=== PATIENT | female | born 1995 | race Caucasian/White ===

== ENCOUNTER 2016-11-14 20:41 | Inpatient (IN) | payer OTHER ==
[2016-11-14 21:19] LABS: CHLORIDE,CL 96 mEq/L (98-106)
[2016-11-14 21:25] LABS: SODIUM,NA 123 mEq/L (136-145)
[2016-11-14] MEDS ORDERED: Sodium Chloride 0.9% 1,000 ML IV ONE (21:29)
[2016-11-14] MEDS ORDERED: Potassium Chloride 40 MEQ in Premix Bag 1 BAG IV ONE (21:30)
[2016-11-14] MEDS ORDERED: Ondansetron 4 MG/2 ML SDV IVPUSH STA (21:46)
[2016-11-14] MEDS ORDERED: Acetaminophen 325 MG Tab PO ONE (21:46)
--- NOTE | 2016-11-14 21:49 | EDM.PDOC ---
ED HPI GENERAL MEDICAL PROBLEM - General Chief Complaint: General Stated Complaint: Vomiting, dizziness, abd cramp, diarrhea Time Seen by Provider: 11/14/16 21:10 Source of Information: Reports: Patient History Limitations: Reports: No Limitations - History of Present Illness INITIAL COMMENTS - FREE TEXT/NARRATIVE: Verito is a 21 yo female who presents to the ER with complaints of nausea, vomiting, fever and diarrhea. States it initially started Sunday night with a fever. Unknown temperature, states she just felt like she had one. States Sunday morning she started having frequent episodes of vomiting with diarrhea. Admits it has continued thru out today. States she is unable to keep anything down. Has been trying to drink water and Gatorade. Denies any recent travel or any questionable foods. Onset Date: 11/12/16 Duration: Getting Worse Location: Reports: Abdomen Abdominal Pain Score (Numeric/FACES): 5 - Related Data Allergies Allergy/AdvReac Type Severity Reaction Status Date / Time No Known Allergies Allergy Verified 11/14/16 20:42 Home Meds: Home Meds . [No Known Home Meds] 11/14/16 [History] Past Medical History - Past Health History Medical/Surgical History: Denies Medical/Surgical History - Past Surgical History Other Surgical History Comment: No prior surgical history Social & Family History - Tobacco Use Smoking Status *Q: Never Smoker - Alcohol Use Alcohol Use in Last Twelve Months: No - Recreational Drug Use Recreational Drug Use: No ED ROS GENERAL - Review of Systems Review Of Systems: See Below Constitutional: Reports: Fever, Chills, Decreased Appetite HEENT: Reports: No Symptoms Respiratory: Reports: No Symptoms. Denies: Shortness of Breath Cardiovascular: Reports: No Symptoms GI/Abdominal: Reports: Abdominal Pain, Diarrhea, Decreased Appetite, Nausea, Vomiting. Denies: Bloody Stool, Constipation, Hematochezia, Melena : Reports: No Symptoms Neurological: Reports: No Symptoms ED EXAM, GENERAL - Physical Exam Exam: See Below Exam Limited By: No Limitations General Appearance: Alert, Mild Distress Eye Exam: Bilateral Eye: Normal Inspection Ears: Normal External Exam, Normal Canal, Hearing Grossly Normal, Normal TMs Nose: Normal Inspection, No Blood Throat/Mouth: Normal Inspection, Normal Lips, Normal Teeth, Normal Oropharynx, Normal Voice, No Airway Compromise Head: Atraumatic, Normocephalic Neck: Normal Inspection, Supple Respiratory/Chest: No Respiratory Distress, Lungs Clear, Normal Breath Sounds, No Accessory Muscle Use Cardiovascular: Normal Peripheral Pulses, Regular Rate, Rhythm, No Murmur GI/Abdominal: No Distention, Tender (right and left lower quadrants), Abnormal Bowel Sounds (hypoactive). No: Guarding, Hepatomegaly, Splenomegaly Extremities: Normal Inspection, Normal Capillary Refill Neurological: Alert, Oriented, Normal Cognition Psychiatric: Normal Affect, Normal Mood Skin Exam: Dry, Intact, Normal Color, No Rash, Increased Warmth Course - Vital Signs Last Recorded V/S: Last Vital Signs Temp 99 F 11/14/16 20:42 Pulse 96 11/14/16 20:42 Resp 18 11/14/16 20:42 BP 135/69 11/14/16 20:42 Pulse Ox 97 11/14/16 20:42 - Orders/Labs/Meds Orders: Active Orders 24 hr Category Date Time Status Patient Status Manage Transfer [TRANSFER] Routine ADT 11/14/16 23:25 Ordered Abdomen Pelvis w Cont [CT] Stat Exams 11/14/16 21:28 Taken Potassium Chloride [KCL 40 MEQ in Water 100 ML] 40 meq Med 11/14/16 21:30 Active Premix Bag 1 bag IV ONETIME Resuscitation Status Routine Resus Stat 11/14/16 23:26 Ordered Medication Orders Potassium Chloride 40 meq/ (Premix) 100 mls @ 25 mls/hr IV ONETIME ONE Stop: 11/15/16 01:29 Last Admin: 11/14/16 22:06 Dose: 25 mls/hr Labs: Laboratory Tests 11/14/16 11/14/16 11/14/16 Range/Units 21:00 21:00 21:00 WBC 10.8 H (5.0-10.0) 10^3/uL RBC 4.69 (4.00-5.50) 10^6/uL Hgb 13.8 (12.0-16.0) g/dL Hct 38.7 (37.0-47.0) % MCV 82.5 (82.0-94.0) fL MCH 29.4 (27.0-32.0) pg MCHC 35.7 (33.0-38.0) g/dL RDW Coeff of Jake 12.1 (11.0-15.0) % Plt Count 205 (150-400) 10^3/uL Neut % (Auto) 67.4 (35-85) % Lymph % (Auto) 23.7 (10-55) % [place] % (Auto) 8.3 (0-16) % Eos % (Auto) 0.3 (0-5) % Baso % (Auto) 0.3 (0-3) % Neut # (Auto) 7.27 H (1.80-7.00) 10^3/uL Lymph # (Auto) 2.55 (1.00-4.80) 10^3/uL [place] # (Auto) 0.90 H (0.00-0.80) 10^3/uL Eos # (Auto) 0.03 (0.00-0.45) 10^3/uL Baso # (Auto) 0.03 10^3/uL Sodium 123 L* (136-145) mEq/L Potassium 2.6 L* (3.5-5.0) mEq/L Chloride 96 L (98-106) mEq/L Carbon Dioxide 25 (21-32) mmol/L BUN 8 (7-18) mg/dL Creatinine 0.8 (0.6-1.0) mg/dL Est Cr Clr Drug Dosing 87.98 mL/min Estimated GFR (MDRD) > 60 (>=60) mL/min Glucose 82 (75-99) mg/dL Calcium 8.8 (8.4-10.1) mg/dL Total Bilirubin 1.5 H (0.0-1.0) mg/dL AST 23 (15-37) U/L ALT 34 (12-78) U/L Alkaline Phosphatase 61 (46-116) U/L C-Reactive Protein 21.8 H (0.2-0.8) mg/dL Total Protein 8.4 H (6.4-8.2) g/dL Albumin 3.7 (3.4-5.0) g/dL Urine Color (YELLOW) Urine Appearance (CLEAR) Urine pH (4.5-8.0) Ur Specific [place] (1.003-1.020) Urine Protein (NEGATIVE) mg/dL Urine Glucose (UA) (NEGATIVE) mg/dL Urine Ketones (NEGATIVE) mg/dL Urine Occult Blood (NEGATIVE) Urine Nitrite (NEGATIVE) Urine Bilirubin (NEGATIVE) Urine Urobilinogen (0.2-1.0) EU/dL Ur Leukocyte Esterase (NEGATIVE) Urine RBC (0-5) /HPF Urine WBC (0-5) /HPF Ur Epithelial Cells (NOT SEEN) /HPF Urine Bacteria (NOT SEEN) /HPF Granular Casts (NOT SEEN) /LPF Urine HCG, Qual Negative 11/14/16 Range/Units 21:00 WBC (5.0-10.0) 10^3/uL RBC (4.00-5.50) 10^6/uL Hgb (12.0-16.0) g/dL Hct (37.0-47.0) % MCV (82.0-94.0) fL MCH (27.0-32.0) pg MCHC (33.0-38.0) g/dL RDW Coeff of Jake (11.0-15.0) % Plt Count (150-400) 10^3/uL Neut % (Auto) (35-85) % Lymph % (Auto) (10-55) % [place] % (Auto) (0-16) % Eos % (Auto) (0-5) % Baso % (Auto) (0-3) % Neut # (Auto) (1.80-7.00) 10^3/uL Lymph # (Auto) (1.00-4.80) 10^3/uL [place] # (Auto) (0.00-0.80) 10^3/uL Eos # (Auto) (0.00-0.45) 10^3/uL Baso # (Auto) 10^3/uL Sodium (136-145) mEq/L Potassium (3.5-5.0) mEq/L Chloride (98-106) mEq/L Carbon Dioxide (21-32) mmol/L BUN (7-18) mg/dL Creatinine (0.6-1.0) mg/dL Est Cr Clr Drug Dosing mL/min Estimated GFR (MDRD) (>=60) mL/min Glucose (75-99) mg/dL Calcium (8.4-10.1) mg/dL Total Bilirubin (0.0-1.0) mg/dL AST (15-37) U/L ALT (12-78) U/L Alkaline Phosphatase (46-116) U/L C-Reactive Protein (0.2-0.8) mg/dL Total Protein (6.4-8.2) g/dL Albumin (3.4-5.0) g/dL Urine Color [place] (YELLOW) Urine Appearance Slightly cloudy (CLEAR) Urine pH 6.0 (4.5-8.0) Ur Specific [place] 1.025 H (1.003-1.020) Urine Protein 100 H (NEGATIVE) mg/dL Urine Glucose (UA) Negative (NEGATIVE) mg/dL Urine Ketones >=160 H (NEGATIVE) mg/dL Urine Occult Blood Moderate H (NEGATIVE) Urine Nitrite Negative (NEGATIVE) Urine Bilirubin Moderate H (NEGATIVE) Urine Urobilinogen 0.2 (0.2-1.0) EU/dL Ur Leukocyte Esterase Negative (NEGATIVE) Urine RBC 10-20 H (0-5) /HPF Urine WBC 10-20 H (0-5) /HPF Ur Epithelial Cells Many H (NOT SEEN) /HPF Urine Bacteria Moderate H (NOT SEEN) /HPF Granular Casts Few H (NOT SEEN) /LPF Urine HCG, Qual Meds: Medications Generic Name Dose Route Start Last Admin Trade Name Freq PRN Reason Stop Dose Admin Potassium Chloride 40 meq/ 100 mls @ 25 mls/hr 11/14/16 21:30 11/14/16 22:06 Premix IV 11/15/16 01:29 25 mls/hr ONETIME ONE Administration Discontinued Medications Generic Name Dose Route Start Last Admin Trade Name Freq PRN Reason Stop Dose Admin Acetaminophen 650 mg 11/14/16 21:46 11/14/16 21:57 Tylenol PO 11/14/16 21:47 650 mg NOW ONE Administration Sodium Chloride 1,000 mls @ 999 mls/hr 11/14/16 21:29 11/14/16 22:02 Normal Saline IV 11/14/16 22:29 999 mls/hr .BOLUS ONE Administration Ondansetron HCl 8 mg 11/14/16 21:46 11/14/16 21:57 Zofran IVPUSH 11/14/16 21:47 8 mg NOW STA Administration Departure - Departure Time of Disposition: 23:00 Disposition: Admitted As Inpatient 66 Condition: Good Clinical Impression: Gastroenteritis, Hyponatremia, Hypokalemia - Discharge Information Forms: ED Department Discharge - Problem List & Annotations (1) Gastroenteritis SNOMED Code(s): 07116581 Code(s): K52.9 - NONINFECTIVE GASTROENTERITIS AND COLITIS, UNSPECIFIED Status: Acute Current Visit: Yes (2) Hypokalemia SNOMED Code(s): 36769111 Code(s): E87.6 - HYPOKALEMIA Status: Acute Current Visit: Yes (3) Hyponatremia SNOMED Code(s): 60716250 Code(s): E87.1 - HYPO-OSMOLALITY AND HYPONATREMIA Status: Acute Current Visit: Yes - Problem List Review Problem List Initiated/Reviewed/Updated: Yes - My Orders Last 24 Hours: My Active Orders 11/14/16 21:28 Abdomen Pelvis w Cont [CT] Stat 11/14/16 21:30 Potassium Chloride [KCL 40 MEQ in Water 100 ML] 40 meq Premix Bag 1 bag IV ONETIME 11/14/16 23:25 Patient Status Manage Transfer [TRANSFER] Routine 11/14/16 23:26 Resuscitation Status Routine - Assessment/Plan Admission H&P: Please use this note as an admission H&P Last 24 Hours: My Active Orders 11/14/16 21:28 Abdomen Pelvis w Cont [CT] Stat 11/14/16 21:30 Potassium Chloride [KCL 40 MEQ in Water 100 ML] 40 meq Premix Bag 1 bag IV ONETIME 11/14/16 23:25 Patient Status Manage Transfer [TRANSFER] Routine 11/14/16 23:26 Resuscitation Status Routine Plan: Admit from ER to Dr. Eric's services under acute care. Dr. Eric and Sharon Mishra alerted on admission. CT scan of the abdomen/pelvis ruled out appendicitis. Reactive lymph nodes in the right mesentary noted, likely a gastroenteritis per radiologist as Pranay. Will treat with IV fluids, potassium replacement, Zofran for nausea. Will closely monitor electrolytes to correct sodium and potassium levels. Verito was informed on current condition and admission status. She was transferred to floor in satisfactory condition.
[2016-11-14] MEDS ORDERED: Ondansetron 4 MG/2 ML SDV IV PRN (23:50)
[2016-11-15] MEDS: NS + KCl 20mEq/L 1,000 ML IV SCH ×3 (00:10→14:30)
[2016-11-15] MEDS: Acetaminophen 325 MG Tab PO PRN (04:25)
[2016-11-15 07:44] LABS: CHLORIDE,CL 108 mEq/L (98-106); SODIUM,NA 143 mEq/L (136-145)
--- NOTE | 2016-11-15 16:40 | PCM.PN ---
- General Info Date of Service: 11/15/16 Admission Dx/Problem (Free Text): Gastroenteritis/colitis Functional Status: Reports: Pain Controlled. Denies: Tolerating Diet, Ambulating - Review of Systems General: Denies: Fever, Weakness, Fatigue HEENT: Reports: No Symptoms Pulmonary: Denies: Shortness of Breath, Cough, Wheezing Cardiovascular: Denies: Chest Pain, Edema, Lightheadedness Gastrointestinal: Reports: Decreased Appetite, Diarrhea, Nausea. Denies: Abdominal Pain, Vomiting Genitourinary: Reports: No Symptoms Musculoskeletal: Reports: No Symptoms Skin: Reports: No Symptoms Neurological: Reports: No Symptoms - Patient Data Vitals - Most Recent: Last Vital Signs Temp 97.9 F 11/15/16 16:00 Pulse 69 11/15/16 16:00 Resp 16 11/15/16 16:00 BP 101/45 L 11/15/16 16:00 Pulse Ox 100 11/15/16 16:00 Weight - Most Recent: 236 lb 1.6 oz I&O - Last 24 Hours: Intake & Output 11/15/16 11/15/16 11/15/16 06:59 14:59 22:59 Intake Total 1000 1000 Balance 1000 1000 Lab Results Last 24 Hours: Laboratory Results - last 24 hr 11/15/16 11/15/16 Range/Units 06:50 06:50 WBC 7.6 (5.0-10.0) 10^3/uL RBC 3.95 L (4.00-5.50) 10^6/uL Hgb 11.6 L (12.0-16.0) g/dL Hct 33.2 L (37.0-47.0) % MCV 84.1 (82.0-94.0) fL MCH 29.4 (27.0-32.0) pg MCHC 34.9 (33.0-38.0) g/dL RDW Coeff of Jake 12.1 (11.0-15.0) % Plt Count 181 (150-400) 10^3/uL Neut % (Auto) 48.5 (35-85) % Lymph % (Auto) 38.3 (10-55) % [place] % (Auto) 11.3 (0-16) % Eos % (Auto) 1.4 (0-5) % Baso % (Auto) 0.5 (0-3) % Neut # (Auto) 3.67 (1.80-7.00) 10^3/uL Lymph # (Auto) 2.91 (1.00-4.80) 10^3/uL [place] # (Auto) 0.86 H (0.00-0.80) 10^3/uL Eos # (Auto) 0.11 (0.00-0.45) 10^3/uL Baso # (Auto) 0.04 10^3/uL Sodium 143 (136-145) mEq/L Potassium 3.9 D (3.5-5.0) mEq/L Chloride 108 H (98-106) mEq/L Carbon Dioxide 26 (21-32) mmol/L BUN 7 (7-18) mg/dL Creatinine 0.7 (0.6-1.0) mg/dL Est Cr Clr Drug Dosing 100.55 mL/min Estimated GFR (MDRD) > 60 (>=60) mL/min Glucose 82 (75-99) mg/dL Calcium 8.1 L (8.4-10.1) mg/dL Magnesium 1.8 (1.8-2.4) mg/dL C-Reactive Protein 18.8 H (0.2-0.8) mg/dL Med Orders - Current: Current Medications Acetaminophen (Tylenol) 650 mg PO Q4H PRN PRN Reason: Pain (Mild 1-3)/fever Last Admin: 11/15/16 04:25 Dose: 650 mg Potassium Chloride/Sodium Chloride (Normal Saline With 20 Meq Kcl) 1,000 mls @ 150 mls/hr IV ASDIRECTED [facility] Last Admin: 11/15/16 14:30 Dose: 150 mls/hr Ondansetron HCl (Zofran) 4 mg IV Q4H PRN PRN Reason: Nausea/Vomiting Discontinued Medications Acetaminophen (Tylenol) 650 mg PO NOW ONE Stop: 11/14/16 21:47 Last Admin: 11/14/16 21:57 Dose: 650 mg Potassium Chloride 40 meq/ (Premix) 100 mls @ 25 mls/hr IV ONETIME ONE Stop: 11/15/16 01:29 Last Admin: 11/14/16 22:06 Dose: 25 mls/hr Sodium Chloride (Normal Saline) 1,000 mls @ 999 mls/hr IV .BOLUS ONE Stop: 11/14/16 22:29 Last Admin: 11/14/16 22:02 Dose: 999 mls/hr Ondansetron HCl (Zofran) 8 mg IVPUSH NOW STA Stop: 11/14/16 21:47 Last Admin: 11/14/16 21:57 Dose: 8 mg - Exam General: Alert, Oriented HEENT: Mucous Membr. Moist/[place] Neck: Supple Lungs: Clear to Auscultation, Normal Respiratory Effort Cardiovascular: Regular Rate, Regular Rhythm GI/Abdominal Exam: Normal Bowel Sounds, Soft, Tender (midepigastric/upper quadrant region) Extremities: Normal Inspection, No Pedal Edema Skin: Warm, Dry Neurological: No New Focal Deficit Psy/Mental Status: Alert, Normal Affect, Normal Mood - Problem List & Annotations (1) Gastroenteritis SNOMED Code(s): 03963905 Code(s): K52.9 - NONINFECTIVE GASTROENTERITIS AND COLITIS, UNSPECIFIED Status: Acute Priority: High Current Visit: Yes (2) Hypokalemia SNOMED Code(s): 87445224 Code(s): E87.6 - HYPOKALEMIA Status: Acute Priority: High Current Visit : Yes (3) Hyponatremia SNOMED Code(s): 90207172 Code(s): E87.1 - HYPO-OSMOLALITY AND HYPONATREMIA Status: Acute Priority : High Current Visit: Yes - Problem List Review Problem List Initiated/Reviewed/Updated: Yes - My Orders Last 24 Hours: My Active Orders 11/16/16 05:11 BASIC METABOLIC PANEL,BMP [CHEM] AM C-REACTIVE PROTEIN [CHEM] AM CBC WITH AUTO DIFF [HEME] AM - Assessment Assessment:: Gastroenteritis - Plan Plan:: Patient states stomach more "settled today", however has yet to be able to tolerate any oral intake. Has been sipping on water today but had some jello and had diarrhea stools thereafter. Did try some soup this afternoon but did not tolerate well. States abdomen is "sore". No further vomiting but admits that the smell of food makes her more nauseated and she has no desire to eat. No fevers. Labs improved today, now within normal range. IV fluids yet infusing. Will reevaluate labs in am. Encouraged oral intake. Decrease IV fluid rate. Follow up and possibly discharge in am.
[2016-11-16] MEDS: Acetaminophen 325 MG Tab PO PRN (01:03)
[2016-11-16] MEDS: NS + KCl 20mEq/L 1,000 ML IV SCH (01:07)
[2016-11-16 08:50] VITALS: BP 98/59
--- NOTE | 2016-11-16 09:13 | PCM.DCSUM1 ---
Discharge Summary - Hospital Course Free Text/Narrative:: Patient presented to ED with complaints of nausea, vomiting, diarrhea and abdominal pain. Had complete work up in the ED including a CT scan and ultrasound that showed reactive lymph nodes most likely from gastroenteritis. Her labs showed a sodium level of 123 and potassium of 2.6. She was admitted for IV fluids and potassium replacement. - Discharge Data Discharge Date: 11/16/16 Discharge Disposition: Home, Self-Care 01 Condition: Good - Discharge Diagnosis/Problem(s) (1) Gastroenteritis SNOMED Code(s): 04413322 ICD Code: K52.9 - NONINFECTIVE GASTROENTERITIS AND COLITIS, UNSPECIFIED Status: Acute Priority: High Current Visit: Yes (2) Hypokalemia SNOMED Code(s): 05885866 ICD Code: E87.6 - HYPOKALEMIA Status: Resolved Priority: High Current Visit: Yes (3) Hyponatremia SNOMED Code(s): 89193030 ICD Code: E87.1 - HYPO-OSMOLALITY AND HYPONATREMIA Status: Resolved Priority: High Current Visit: Yes - Patient Summary/Data Complications: none Hospital Course: Patient feeling better now today. Did have difficulty tolerating any oral intake as it caused more diarrhea and abdominal "soreness". Did finally eat some soup last night and tolerated well, states stools are now starting to have some more consistently, not as watery. She has been afebrile now. Labs have improved. Sodium today was 142, potassium of 4. She does have occasional nausea but no further vomiting. Discharge home on Zofran and follow up as needed. - Patient Instructions Diet: Regular Diet as Tolerated Activity: As Tolerated - Discharge Plan Home Medications: Home Meds . [No Known Home Meds] 11/14/16 [History] Forms: ED Department Discharge Referrals: PCP,Unobtain [Ordering Only Provider] - - Discharge Summary/Plan Comment DC Time >30 min.: Yes Discharge Summary/Plan Comment: Discharge home on Zofran, follow up in clinic as needed. - General Info Date of Service: 11/16/16 Admission Dx/Problem (Free Text: Gastroenteritis/colitis Functional Status: Reports: Pain Controlled, Tolerating Diet, Ambulating - Review of Systems General: Reports: Fatigue. Denies: Fever, Weakness HEENT: Reports: No Symptoms Pulmonary: Denies: Shortness of Breath, Cough, Sputum Cardiovascular: Denies: Chest Pain, Edema, Lightheadedness Gastrointestinal: Reports: Abdominal Pain, Diarrhea, Nausea. Denies: Constipation, Vomiting Genitourinary: Reports: No Symptoms Musculoskeletal: Reports: No Symptoms Skin: Reports: No Symptoms Neurological: Reports: No Symptoms Psychiatric: Reports: No Symptoms - Patient Data Vitals - Most Recent: Last Vital Signs Temp 98.7 F 11/16/16 08:00 Pulse 68 11/16/16 08:00 Resp 16 11/16/16 08:00 BP 98/59 L 11/16/16 08:00 Pulse Ox 99 11/16/16 08:00 Weight - Most Recent: 236 lb 1.6 oz I&O - Last 24 hours: Intake & Output 11/15/16 11/16/16 11/16/16 22:59 06:59 14:59 Intake Total 353 620 Balance 353 620 Med Orders - Current: Current Medications Acetaminophen (Tylenol) 650 mg PO Q4H PRN PRN Reason: Pain (Mild 1-3)/fever Last Admin: 11/16/16 01:03 Dose: 650 mg Potassium Chloride/Sodium Chloride (Normal Saline With 20 Meq Kcl) 1,000 mls @ 75 mls/hr IV ASDIRECTED [facility] Last Admin: 11/16/16 01:07 Dose: 75 mls/hr Ondansetron HCl (Zofran) 4 mg IV Q4H PRN PRN Reason: Nausea/Vomiting Discontinued Medications Acetaminophen (Tylenol) 650 mg PO NOW ONE Stop: 11/14/16 21:47 Last Admin: 11/14/16 21:57 Dose: 650 mg Potassium Chloride 40 meq/ (Premix) 100 mls @ 25 mls/hr IV ONETIME ONE Stop: 11/15/16 01:29 Last Admin: 11/14/16 22:06 Dose: 25 mls/hr Sodium Chloride (Normal Saline) 1,000 mls @ 999 mls/hr IV .BOLUS ONE Stop: 11/14/16 22:29 Last Admin: 11/14/16 22:02 Dose: 999 mls/hr Ondansetron HCl (Zofran) 8 mg IVPUSH NOW STA Stop: 11/14/16 21:47 Last Admin: 11/14/16 21:57 Dose: 8 mg - Exam General: Reports: Alert, Oriented HEENT: Reports: Mucous Membr. Moist/[place] Neck: Reports: Supple Lungs: Reports: Clear to Auscultation, Normal Respiratory Effort Cardiovascular: Reports: Regular Rate, Regular Rhythm GI/Abdominal Exam: Normal Bowel Sounds, Soft, Tender (midepigastric area) Rectal (Female) Exam: Normal Exam Back Exam: Reports: Normal Inspection Skin: Reports: Warm, Dry Neurological: Reports: No New Focal Deficit Psy/Mental Status: Reports: Alert, Normal Affect, Normal Mood *Q Meaningful Use (DIS) - VTE *Q VTE Criteria *Q: - Stroke *Q Stroke Criteria *Q: - AMI *Q AMI Criteria *Q:
[2016-11-16 09:29] LABS: CHLORIDE,CL 109 mEq/L (98-106); SODIUM,NA 142 mEq/L (136-145)
== END 2016-11-16 09:20 | disposition home or self-care (01) | DRG 392 ==
LOC: CC.ED 20:41 → CC.MS 23:43 → UNDOADMIN 23:43 → CC.MS 23:50
PROVIDERS: ADMIT Physician Assistant Medical; ATTEND Family Medicine
DX: K52.9 Noninfective gastroenteritis and colitis, unspecified (principal); E87.1 Hypo-osmolality and hyponatremia; E87.6 Hypokalemia
CPT/HCPCS: 36415; 74177; 80048; 80053; 81001; 81025; 83735; 85025; 86140; 96361; 96365; 96366; 96374; 96375; 99284; A9270-GY; J2405; J3480; J7030; Q9967

== ENCOUNTER 2017-01-16 00:51 | Emergency (ER) | payer OTHER ==
[2017-01-16 00:58] VITALS: BP 146/71
--- NOTE | 2017-01-16 01:25 | EDM.PDOC ---
ED HPI GENERAL MEDICAL PROBLEM - General Chief Complaint: Abdominal Pain Stated Complaint: abd pain Time Seen by Provider: 01/16/17 01:14 Source of Information: Reports: Patient, Old Records History Limitations: Reports: No Limitations - History of Present Illness INITIAL COMMENTS - FREE TEXT/NARRATIVE: Patient presents to the ER with epigastric and RUQ abdominal pain going through to the right upper back. 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 She has an appointment with a surgeon in about two weeks. She started having diarrhea today as well as the pain going through to the back. She became anxious, short of breath and nauseated. Last emesis earlier today. Patients LMP was two weeks ago. Denies being . Had CT of abdomen pelvis , GB ultrasound and HIDA scan late october. Has been having intermittent symptoms of epigastric pain and nausea since then. The pain in the right upper back is new. 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 [No Known Home Meds] 11/14/16 [History] Past Medical History - Past Health History Medical/Surgical History: Denies Medical/Surgical History Gastrointestinal History: Reports: Other (See Below) (biliary dyskenesa diagnosed with HIDA scan last month) - Past Surgical History Other Surgical History Comment: No prior surgical history Social & Family History - Family History Family Medical History: Noncontributory - Tobacco Use Smoking Status *Q: Never Smoker Second Hand Smoke Exposure: No - Recreational Drug Use Recreational Drug Use: No ED ROS GENERAL - Review of Systems Review Of Systems: See Below Constitutional: Reports: Fever, Chills HEENT: Reports: No Symptoms Respiratory: Reports: Shortness of Breath, Pleuritic Chest Pain (right upper back pain worse with deep breathing or cough). Denies: Sputum, Hemoptysis Cardiovascular: Denies: Chest Pain, Dyspnea on Exertion, Edema, Lightheadedness , Palpitations Endocrine: Reports: No Symptoms GI/Abdominal: Reports: Abdominal Pain, Diarrhea, Nausea, Vomiting. Denies: Black Stool, Bloody Stool, Flatus : Reports: No Symptoms Musculoskeletal: Reports: Back Pain (right upper back pain radiating from epigastric and RUQ area) Skin: Reports: No Symptoms Neurological: Reports: No Symptoms Psychiatric: Reports: No Symptoms Hematologic/Lymphatic: Reports: No Symptoms Immunologic: Reports: No Symptoms ED EXAM, GI/ABD - Physical Exam Exam: See Below Exam Limited By: No Limitations General Appearance: Alert, WD/WN, No Apparent Distress Eyes: Bilateral: Normal Appearance, EOMI Ears: Normal External Exam, Normal Canal, Hearing Grossly Normal, Normal TMs Nose: Normal Inspection, Normal Mucosa, No Blood Throat/Mouth: Normal Inspection, Normal Lips, Normal Teeth, Normal Gums, Normal Oropharynx, Normal Voice, No Airway Compromise Head: Atraumatic, Normocephalic Neck: Normal Inspection, Supple, Non-Tender, Full Range of Motion Respiratory/Chest: No Respiratory Distress, Lungs Clear, Normal Breath Sounds, No Accessory Muscle Use, Chest Non-Tender, Other (taking deep breath causes increased pain in right upper back) Cardiovascular: Normal Peripheral Pulses, Regular Rate, Rhythm, No Edema, No Gallop, No JVD, No Murmur, No Rub GI/Abdominal Exam: Other (Hypoactive bowel sounds in all four quadrants. abdomen is obese, non-distended, tender particularly in RUQ and epigastric area , non tender Lower abdomen. no flank tenderness with percussion. no guarding, distension or rigidity) (Female) Exam: Deferred Rectal (Female) Exam: Deferred Back Exam: Other (tender right upper back with percussion). No: CVA Tenderness (L), CVA Tenderness (R) Extremities: Normal Inspection, Normal Range of Motion, Non-Tender, Normal Capillary Refill, No Pedal Edema Neurological: Alert, Oriented, CN II-XII Intact, Normal Cognition, Normal Gait, Normal Reflexes, No Motor/Sensory Deficits Psychiatric: Normal Affect, Normal Mood Skin Exam: Warm, Dry, Intact, Normal Color, No Rash Lymphatic: No Adenopathy Course - Vital Signs Last Recorded V/S: Last Vital Signs Temp 38.2 C H 01/16/17 00:52 Pulse 110 H 01/16/17 00:52 Resp 16 01/16/17 00:52 BP 146/71 H 01/16/17 00:52 Pulse Ox 96 01/16/17 00:52 - Orders/Labs/Meds Orders: Active Orders 24 hr Category Date Time Status Abdomen 2V AP Flat Upright [CR] Stat Exams 01/16/17 01:32 Taken Chest 2V [CR] Stat Exams 01/16/17 01:31 Taken Sodium Chloride 0.9% [Normal Saline] 1,000 ml Med 01/16/17 01:45 Active IV ASDIRECTED Sodium Chloride 0.9% [Saline Flush] Med 01/16/17 01:34 Active 10 ml FLUSH ASDIRECTED PRN Saline Lock Insert [OM.PC] Routine Oth 01/16/17 01:34 Ordered Medication Orders Sodium Chloride (Normal Saline) 1,000 mls @ 999 mls/hr IV ASDIRECTED BECKY Last Admin: 01/16/17 01:45 Dose: 999 mls/hr Sodium Chloride (Saline Flush) 10 ml FLUSH ASDIRECTED PRN PRN Reason: Keep Vein Open Labs: Laboratory Tests 01/16/17 01/16/17 Range/Units 01:45 01:45 WBC 5.8 (5.0-10.0) 10^3/uL RBC 4.46 (4.00-5.50) 10^6/uL Hgb 13.2 (12.0-16.0) g/dL Hct 37.5 (37.0-47.0) % MCV 84.1 (82.0-94.0) fL MCH 29.6 (27.0-32.0) pg MCHC 35.2 (33.0-38.0) g/dL RDW Coeff of Jake 12.5 (11.0-15.0) % Plt Count 229 (150-400) 10^3/uL Neut % (Auto) 68.0 (35-85) % Lymph % (Auto) 24.6 (10-55) % [place] % (Auto) 6.9 (0-16) % Eos % (Auto) 0.2 (0-5) % Baso % (Auto) 0.3 (0-3) % Neut # (Auto) 3.96 (1.80-7.00) 10^3/uL Lymph # (Auto) 1.43 (1.00-4.80) 10^3/uL [place] # (Auto) 0.40 (0.00-0.80) 10^3/uL Eos # (Auto) 0.01 (0.00-0.45) 10^3/uL Baso # (Auto) 0.02 10^3/uL Sodium 138 (136-145) mEq/L Potassium 3.7 (3.5-5.0) mEq/L Chloride 101 (98-106) mEq/L Carbon Dioxide 27 (21-32) mmol/L BUN 8 D (7-18) mg/dL Creatinine 0.7 (0.6-1.0) mg/dL Est Cr Clr Drug Dosing 100.55 mL/min Estimated GFR (MDRD) > 60 (>=60) mL/min Glucose 113 H D (75-99) mg/dL Calcium 9.0 (8.4-10.1) mg/dL Total Bilirubin 0.8 (0.0-1.0) mg/dL AST 21 (15-37) U/L ALT 40 (12-78) U/L Alkaline Phosphatase 56 (46-116) U/L C-Reactive Protein 1.8 H (0.2-0.8) mg/dL Total Protein 7.8 (6.4-8.2) g/dL Albumin 3.6 (3.4-5.0) g/dL Amylase 33 (25-115) U/L Meds: Medications Generic Name Dose Route Start Last Admin Trade Name Freq PRN Reason Stop Dose Admin Sodium Chloride 1,000 mls @ 999 mls/hr 01/16/17 01:45 01/16/17 01:45 Normal Saline IV 999 mls/hr ASDIRECTED BECKY Administration Sodium Chloride 10 ml 01/16/17 01:34 Saline Flush FLUSH ASDIRECTED PRN Keep Vein Open Discontinued Medications Generic Name Dose Route Start Last Admin Trade Name Freq PRN Reason Stop Dose Admin Ketorolac Tromethamine 30 mg 01/16/17 01:37 01/16/17 01:45 Toradol IVPUSH 01/16/17 01:38 30 mg ONETIME ONE Administration Ondansetron HCl 4 mg 01/16/17 01:40 01/16/17 01:41 Zofran IVPUSH 01/16/17 01:41 4 mg ONETIME ONE Administration Pantoprazole Sodium 40 mg 01/16/17 01:38 01/16/17 01:45 Protonix Iv IVPUSH 01/16/17 01:39 40 mg ONETIME ONE Administration - Radiology Interpretation Free Text/Narrative:: CXR without acute abnormality with over read pending. No evidence of infiltrate or pneumothorax or other abnormality. Abdominal flat and upright showed stool in the ascending colon and a few scattered air fluid levels in the left upper quadrant but no free air with radiology over read pending. - Re-Assessments/Exams Free Text/Narrative Re-Assessment/Exam: 01/16/17 02:18 Patient evaluated in ER and labs and diagnostics done. Xrays as above. Labs basically within normal limits except CRP 1.8. Electrolytes, CBC, CMP and amylase within normal limits. IV was started and patient was given one liter of NS over an hour. She was given toradol 30 mg, zofran 4 mg and protonix 40 mg IV. Patient had significant improvement in symptoms. She does not appear acute or toxic on exam. She does not appear by exam or lab work to have an acute abdomen. The exact etiology of the fever is uncertain, possible a viral GI bug aggravating the biliary dyskenesia. Patient has not had any emesis or diarrhea while in ER. She is going to be discharged to home with follow up with her PCP later in the day. They may need to expedite her surgical evaluation. This was all explained in detail with patient and she voiced understanding of this information. Departure - Departure Time of Disposition: 14:50 Disposition: Home, Self-Care 01 Condition: Good Clinical Impression: Abdominal pain Qualifiers: Abdominal location: epigastric Qualified Code(s): R10.13 - Epigastric pain Vomiting Qualifiers: Vomiting type: unspecified Vomiting Intractability: non-intractable Nausea presence: with nausea Qualified Code(s): R11.2 - Nausea with vomiting, unspecified Diarrhea Qualifiers: Diarrhea type: unspecified type Qualified Code(s): R19.7 - Diarrhea, unspecified - Discharge Information Instructions: Viral Gastroenteritis, Adult, [id number] Referrals: Ida Murray PA-C [Primary Care Provider] - Forms: ED Department Discharge Additional Instructions: Follow a clear liquid diet for a few days. Stay away from greasy, spicy, fried or hard foods til you feel better. Call the clinic first thing in the morning to make an appointment to see your provider. They may need to try and move up your surgery consult. Return to clinic or ER if symptoms worsen, if you have severe vomiting, are unable to keep foods down or run a high fever. - My Orders Last 24 Hours: My Active Orders 01/16/17 01:31 Chest 2V [CR] Stat 01/16/17 01:32 Abdomen 2V AP Flat Upright [CR] Stat 01/16/17 01:34 Sodium Chloride 0.9% [Saline Flush] 10 ml FLUSH ASDIRECTED PRN Saline Lock Insert [OM.PC] Routine 01/16/17 01:45 Sodium Chloride 0.9% [Normal Saline] 1,000 ml IV ASDIRECTED - Assessment/Plan Last 24 Hours: My Active Orders 01/16/17 01:31 Chest 2V [CR] Stat 01/16/17 01:32 Abdomen 2V AP Flat Upright [CR] Stat 01/16/17 01:34 Sodium Chloride 0.9% [Saline Flush] 10 ml FLUSH ASDIRECTED PRN Saline Lock Insert [OM.PC] Routine 01/16/17 01:45 Sodium Chloride 0.9% [Normal Saline] 1,000 ml IV ASDIRECTED
[2017-01-16] MEDS ORDERED: Sodium Chloride 0.9% 10 ML Syringe FLUSH PRN (01:34)
[2017-01-16] MEDS ORDERED: Ketorolac 30 MG/ML SDV IVPUSH ONE (01:37)
[2017-01-16] MEDS ORDERED: Pantoprazole 40 MG Vial IVPUSH ONE (01:38)
[2017-01-16] MEDS ORDERED: Ondansetron 4 MG/2 ML SDV IVPUSH ONE (01:40)
[2017-01-16] MEDS ORDERED: Sodium Chloride 0.9% 1,000 ML IV SCH (01:45)
[2017-01-16 02:06] LABS: CHLORIDE,CL 101 mEq/L (98-106); SODIUM,NA 138 mEq/L (136-145)
== END 2017-01-16 03:00 | disposition home or self-care (01) ==
LOC: CC.ED 00:51
DX: R10.13 Epigastric pain (principal); R11.2 Nausea with vomiting, unspecified; R19.7 Diarrhea, unspecified
CPT/HCPCS: 36415; 71020; 74020; 80053; 82150; 85025; 86140; 96365; 96375; 99284; C9113; J1885; J2405; J7030; 96361; 96374

== ENCOUNTER 2024-06-09 20:47 | Observation (INO) | payer BC, MEDICAID, OTHER ==
[2024-06-09] MEDS: Ibuprofen 200 MG Tab PO ONE (20:56)
[2024-06-09 21:09] LABS: BASOPHILS ABSOLUTE AUTO 0.02 10^3/uL (0.00-0.50); BASOPHILS PERCENT AUTO 0.1 % (0-1); EOSINOPHILS ABSOLUTE AUTO 0.03 10^3/uL (0.00-1.50); EOSINOPHILS PERCENT AUTO 0.2 % (0-6); HEMATOCRIT 38.3 % (37.0-47.0); HEMOGLOBIN 13.5 g/dL (12.0-16.0); IMMATURE GRAN ABSOLUTE AUTO 0.02 10^3/uL (0.00-0.49); IMMATURE GRAN PERCENT AUTO 0.1 % (0.0-4.9); LYMPHOCYTES ABSOLUTE AUTO 2.13 10^3/uL (0.60-5.00); LYMPHOCYTES PERCENT AUTO 13.4 % (24-44); MEAN CORPUSCULAR HEMOGLOBIN 29.9 pg (27.0-32.0); MEAN CORPUSCULAR HGB CONC 35.2 g/dL (32.0-36.0); MEAN CORPUSCULAR VOLUME 84.7 fL (83.0-97.0); MONOCYTES ABSOLUTE AUTO 0.68 10^3/uL (0.00-1.50); MONOCYTES PERCENT AUTO 4.3 % (0-10); NEUTROPHILS ABSOLUTE AUTO 13.03 x10^3/uL (1.80-8.00); NEUTROPHILS PERCENT AUTO 81.9 % (41-71); PLATELET COUNT,PLT 238 10^3/uL (150-400); RED BLOOD CELL COUNT 4.52 x10^6/uL (4.00-5.50); WHITE BLOOD CELL COUNT,WBC 15.9 10^3/uL (4.0-11.0)
[2024-06-09 21:22] LABS: ALBUMIN 3.8 g/dL (3.4-5.0); BILIRUBIN TOTAL 2.3 mg/dL (0.0-1.0); C-REACTIVE PROTEIN 4.15 mg/dL (<=0.50); CALCIUM 9.4 mg/dL (8.4-10.1); EST CRCL DRUG DOSING (CG) 66.24 mL/min; POTASSIUM,K 3.2 mEq/L (3.5-5.0); PROTEIN TOTAL,TP 8.2 g/dL (6.4-8.2)
[2024-06-09 21:48] LABS: APPEARANCE,URINE CLEAR (CLEAR); BILIRUBIN,URINE NEGATIVE (NEGATIVE); COLOR,URINE YELLOW (YELLOW); GLUCOSE,URINE NEGATIVE (NEGATIVE); KETONES,URINE TRACE mg/dL (NEGATIVE); LEUKOCYTE ESTERASE,URINE NEGATIVE (NEGATIVE); NITRITE,URINE NEGATIVE (NEGATIVE); OCCULT BLOOD,URINE TRACE-INTACT (NEGATIVE); PH,URINE 8.5 (4.5-8.0); PROTEIN,URINE TRACE mg/dL (NEGATIVE)
[2024-06-09 21:56] LABS: WBC,URINE 0-5 /HPF (0-5)
[2024-06-09 21:57] LABS: BACTERIA,URINE FEW /HPF (NOT SEEN); EPITHELIAL CELLS,URINE MANY /HPF (NOT SEEN)
[2024-06-09 22:11] LABS: CORONAVIRUS COVID-19 NAA NEGATIVE (NEGATIVE); INFLUENZA A NAA NEGATIVE (NEGATIVE); INFLUENZA B NAA NEGATIVE (NEGATIVE)
[2024-06-09] MEDS: Ketorolac 30 MG/ML SDV IVPUSH ONE (22:30)
[2024-06-09] MEDS: Sodium Chloride 0.9% 1,000 ML IV ONE (22:30)
[2024-06-09] MEDS: Acetaminophen 500 MG Tab ONE (22:33)
[2024-06-09] MEDS: Acetaminophen 500 MG Tab PO ONE (22:45)
[2024-06-09] MEDS: cefTRIAXone 1 GM Vial IVPUSH ONE (22:49)
[2024-06-09] MEDS: Acetaminophen 325 MG Tab PO ONE (23:13)
[2024-06-10] MEDS ORDERED: Ondansetron 4 MG/2 ML SDV IV PRN (00:05)
[2024-06-10] MEDS: Sodium Chloride 0.9% 1,000 ML IV SCH (00:39)
[2024-06-10] MEDS: Ibuprofen 200 MG Tab PO PRN (02:36)
[2024-06-10] MEDS: Ondansetron 4 MG Tab.DIS PO PRN (06:39)
[2024-06-10 07:41] LABS: BASOPHILS ABSOLUTE AUTO 0.02 10^3/uL (0.00-0.50); BASOPHILS PERCENT AUTO 0.1 % (0-1); EOSINOPHILS ABSOLUTE AUTO 0.01 10^3/uL (0.00-1.50); EOSINOPHILS PERCENT AUTO 0.1 % (0-6); HEMATOCRIT 34.7 % (37.0-47.0); HEMOGLOBIN 12.1 g/dL (12.0-16.0); IMMATURE GRAN ABSOLUTE AUTO 0.05 10^3/uL (0.00-0.49); IMMATURE GRAN PERCENT AUTO 0.3 % (0.0-4.9); LYMPHOCYTES ABSOLUTE AUTO 1.71 10^3/uL (0.60-5.00); LYMPHOCYTES PERCENT AUTO 10.4 % (24-44); MEAN CORPUSCULAR HGB CONC 34.9 g/dL (32.0-36.0); MEAN CORPUSCULAR VOLUME 85.9 fL (83.0-97.0); MONOCYTES ABSOLUTE AUTO 0.79 10^3/uL (0.00-1.50); MONOCYTES PERCENT AUTO 4.8 % (0-10); NEUTROPHILS ABSOLUTE AUTO 13.89 x10^3/uL (1.80-8.00); NEUTROPHILS PERCENT AUTO 84.3 % (41-71); PLATELET COUNT,PLT 198 10^3/uL (150-400); RED BLOOD CELL COUNT 4.04 x10^6/uL (4.00-5.50); WHITE BLOOD CELL COUNT,WBC 16.5 10^3/uL (4.0-11.0)
[2024-06-10] MEDS: Acetaminophen 325 MG Tab PO PRN (08:06)
[2024-06-10 08:24] LABS: ALBUMIN 2.9 g/dL (3.4-5.0); BILIRUBIN TOTAL 2.7 mg/dL (0.0-1.0); C-REACTIVE PROTEIN 11.96 mg/dL (<=0.50); CREATININE 0.8 mg/dL (0.6-1.0); EST CRCL DRUG DOSING (CG) 82.8 mL/min; POTASSIUM,K 3.4 mEq/L (3.5-5.0); PROTEIN TOTAL,TP 6.7 g/dL (6.4-8.2)
[2024-06-10] MEDS: Azithromycin 250 MG Tab PO SCH (11:05)
[2024-06-10] MEDS: methylPREDNISolone Sodium Succinate 40 MG/1 ML SDV IVPUSH SCH (19:36)
[2024-06-10] MEDS: cefTRIAXone 1 GM Vial IVPUSH SCH (19:40)
[2024-06-11 07:52] LABS: BASOPHILS ABSOLUTE AUTO 0.02 10^3/uL (0.00-0.50); BASOPHILS PERCENT AUTO 0.1 % (0-1); HEMATOCRIT 33.2 % (37.0-47.0); HEMOGLOBIN 11.5 g/dL (12.0-16.0); IMMATURE GRAN ABSOLUTE AUTO 0.06 10^3/uL (0.00-0.49); IMMATURE GRAN PERCENT AUTO 0.4 % (0.0-4.9); LYMPHOCYTES ABSOLUTE AUTO 2.18 10^3/uL (0.60-5.00); LYMPHOCYTES PERCENT AUTO 13.5 % (24-44); MEAN CORPUSCULAR HEMOGLOBIN 29.9 pg (27.0-32.0); MEAN CORPUSCULAR HGB CONC 34.6 g/dL (32.0-36.0); MEAN CORPUSCULAR VOLUME 86.5 fL (83.0-97.0); MONOCYTES ABSOLUTE AUTO 0.21 10^3/uL (0.00-1.50); MONOCYTES PERCENT AUTO 1.3 % (0-10); NEUTROPHILS ABSOLUTE AUTO 13.63 x10^3/uL (1.80-8.00); NEUTROPHILS PERCENT AUTO 84.7 % (41-71); PLATELET COUNT,PLT 218 10^3/uL (150-400); RED BLOOD CELL COUNT 3.84 x10^6/uL (4.00-5.50); WHITE BLOOD CELL COUNT,WBC 16.1 10^3/uL (4.0-11.0)
[2024-06-11 08:02] LABS: ALBUMIN 2.7 g/dL (3.4-5.0); CALCIUM 8.7 mg/dL (8.4-10.1); CREATININE 0.7 mg/dL (0.6-1.0); EST CRCL DRUG DOSING (CG) 94.63 mL/min; POTASSIUM,K 3.4 mEq/L (3.5-5.0); PROTEIN TOTAL,TP 7.1 g/dL (6.4-8.2)
[2024-06-11 08:05] LABS: C-REACTIVE PROTEIN 29.29 mg/dL (<=0.50)
[2024-06-11] MEDS: cefTRIAXone 1 GM Vial IVPUSH SCH (11:56)
[2024-06-11 12:14] VITALS: BP 106/51; PULSE 61
== END 2024-06-11 13:08 | disposition home or self-care (01) ==
LOC: CC.ED 20:47 → CC.MS 23:40
PROVIDERS: ADMIT Physician Assistant Medical; ATTEND Physician Assistant Medical
DX: R50.9 Fever, unspecified (principal); D72.829 Elevated white blood cell count, unspecified; J18.9 Pneumonia, unspecified organism; Z20.822 Contact with and (suspected) exposure to COVID-19
CPT/HCPCS: 0240U; 36415; 71046; 80053; 81001; 83605; 85025; 86140; 87428-QW; 96361; 96374; 96375; 96376; 99223; 99233; 99239; 99285-25; A9270-GY; G0378; J0696; J1885; J2919; J7030

== ENCOUNTER 2024-07-13 14:41 | Emergency (ER) | payer SELFPAY ==
[2024-07-13] MEDS: Orphenadrine 60 MG/2 ML Inj IM ONE (15:02)
[2024-07-13] MEDS: Ketorolac 30 MG/ML SDV IM STA (15:02)
[2024-07-13 15:22] VITALS: BP 117/69; PULSE 95
[2024-07-13] MEDS: Take Home: Cyclobenzaprine 10 MG Tab, 4 Tab Pack PO ONE (15:33)
== END 2024-07-13 15:40 | disposition home or self-care (01) ==
LOC: CC.ED 14:41
DX: M54.50 Low back pain, unspecified (principal); Z90.49 Acquired absence of other specified parts of digestive tract
CPT/HCPCS: 96372; 99283; A9270-GY; J1885; J2360

== ENCOUNTER 2024-07-15 08:35 | Emergency (ER) | payer SELFPAY ==
[2024-07-15 08:48] VITALS: BP 98/45; PULSE 78
[2024-07-15 09:03] LABS: APPEARANCE,URINE SLIGHTLY CLOUDY (CLEAR); BILIRUBIN,URINE NEGATIVE (NEGATIVE); COLOR,URINE YELLOW (YELLOW); GLUCOSE,URINE NEGATIVE (NEGATIVE); KETONES,URINE NEGATIVE (NEGATIVE); LEUKOCYTE ESTERASE,URINE NEGATIVE (NEGATIVE); NITRITE,URINE NEGATIVE (NEGATIVE); OCCULT BLOOD,URINE NEGATIVE (NEGATIVE); PROTEIN,URINE NEGATIVE (NEGATIVE); UROBILINOGEN,URINE 0.2 EU/dL (0.2-1.0)
[2024-07-15] MEDS: HYDROmorphone 0.5 MG/0.5 ML Syringe SUBCUT STA (09:03)
[2024-07-15] MEDS: methylPREDNISolone Sodium Succinate 40 MG/1 ML SDV IM ONE (09:03)
== END 2024-07-15 09:45 | disposition home or self-care (01) ==
LOC: CC.ED 08:35
DX: M54.41 Lumbago with sciatica, right side (principal); Z79.899 Other long term (current) drug therapy
CPT/HCPCS: 81003; 81025; 96372; 99283; 99284; J2919